=== PATIENT | male | born 1995 | race American Indian/Alaskan Native ===

== ENCOUNTER 2016-10-11 14:45 | Emergency (ER) | payer OTHER, BC ==
[2016-10-11] MEDS ORDERED: MOTRIN PO ONE (16:56)
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
--- NOTE | 2016-10-11 17:32 | XRay Report ---
FINAL REPORT EXAM: XR SPINE LUMBOSACRAL 2-3V HISTORY: back pain TECHNIQUE: AP, lateral and lumbosacral spot views of the lumbar spine. PRIORS: None. FINDINGS: There are five lumbar type vertebral bodies. Levoscoliosis of the lumbar spine is seen. No spondylolisthesis. No compression fracture. The disc spaces are maintained. The paravertebral soft tissues are normal. IMPRESSION: Levoscoliosis of the lumbar spine.
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
[2016-10-11 19:30] VITALS: BP 140/85
== END 2016-10-11 18:45 | disposition home or self-care (01) ==
LOC: ED 14:45
DX: S16.1XXA Strain of muscle, fascia and tendon at neck level, initial encounter (principal); S39.012A Strain of muscle, fascia and tendon of lower back, initial encounter; S00.93XA Contusion of unspecified part of head, initial encounter; R03.0 Elevated blood-pressure reading, without diagnosis of hypertension; V49.59XA Passenger injured in collision with other motor vehicles in traffic accident, initial encounter; Y93.9 Activity, unspecified; Y92.9 Unspecified place or not applicable; Y99.9 Unspecified external cause status
CPT/HCPCS: 70450; 72040; 72100; 99284

== ENCOUNTER 2019-08-18 07:11 | Day surgery (SDC) | payer BC, MEDICAID ==
[~2019-08-18 07:11] MED LIST: ceFAZolin/Water 2 GM/20 ML 2 GM/20 ML SYRINGE IV NR
[2019-08-18] MEDS ORDERED: SODIUM CHLORIDE 0.9% 1000 ML 1,000 ML IV SCH (08:30)
[2019-08-18] MEDS ORDERED: fentaNYL 100 MCG/2 ML INJ IV PRN (09:21)
[2019-08-18] MEDS ORDERED: ONDANSETRON 4 MG/2 ML INJ IV PRN (09:21)
[2019-08-18 09:22] LABS: Hematocrit 26.4 % (35.5-45.6); Hemoglobin 9.2 gm/dl (11.8-15.2); Mean Corpuscular HGB Conc 35 % (32-34); Mean Corpuscular Volume 99 fl (84-94); Platelet Count 226 K/mm3 (140-440); Red Blood Count 2.67 M/mm3 (3.65-5.03); Red Cell Distribution Width 16.6 % (13.2-15.2)
--- NOTE | 2019-08-18 09:22 | Anesthesia Day of Surgery ---
Anesthesia Day of Surgery - Day of Surgery Patient Examined: Yes Patient H&P Reviewed: Yes Patient is NPO: Yes
--- NOTE | 2019-08-18 09:23 | Anesthesia Consultation ---
Anesthesia Consult and Med Hx Date of service: 08/18/19 - Airway Anesthetic Teeth Evaluation: Good ROM Head & Neck: Adequate Mental/Hyoid Distance: Adequate Mallampati Class: Class III Intubation Access Assessment: Probably Good - Pre-Operative Health Status ASA Pre-Surgery Classification: ASA3 Proposed Anesthetic Plan: General - Pulmonary Hx Respiratory Symptoms: No (Pt states he can climb two flights of stairs) Hx Sleep Apnea: No (Pt denies) - Cardiovascular System Hx Hypertension: Yes - Central Nervous System Hx Psychiatric Problems: No - Endocrine Hx Renal Disease: Yes (From excessive Goody powders) Hx End Stage Renal Disease: Yes (Last HD yesterday) - Hematic Hx Anemia: No - Other Systems Hx Cancer: No Hx Obesity: Yes (Morbid)
[2019-08-18 09:25] LABS: Calcium 9.7 mg/dL (8.4-10.2)
[2019-08-18] MEDS ORDERED: MIDAZOLAM 2 MG/2 ML INJ IV NR (10:00)
[2019-08-18] MEDS ORDERED: HEPARIN 10,000 UNITS/10 ML VIAL ONE (10:12)
[2019-08-18] MEDS ORDERED: SODIUM CHLORIDE 0.9% 250ML 250 ML ONE (10:12)
[2019-08-18] MEDS ORDERED: GELATIN SPONGE SIZE 100 TP ONE ×2 (10:12→12:14)
[2019-08-18] MEDS ORDERED: PROTAMINE SULFATE 50 MG/5 ML INJ ONE (10:12)
[2019-08-18] MEDS ORDERED: THROMBIN (RECOMBINANT) 5,000 UNIT VIAL TP ONE ×2 (10:13→12:14)
[2019-08-18] MEDS ORDERED: fentaNYL 100 MCG/2 ML INJ ONE ×2 (11:04→11:53)
[2019-08-18] MEDS ORDERED: propofoL 200 MG/20 ML VIAL IV ONE (11:05)
[2019-08-18] MEDS ORDERED: LIDOCAINE MPF (2%) 20 MG/1 ML VIAL 5 ML ONE (11:06)
[2019-08-18] MEDS ORDERED: PHENYLEPHRINE/NS 1,000 MCG/10 ML SYRINGE (OR USE) IV ONE (12:08)
[2019-08-18] MEDS ORDERED: PHENYLEPHRINE 10 MG/1 ML INJ SDV ONE (12:09)
[2019-08-18] MEDS ORDERED: SODIUM CHLORIDE 0.9% 100 ML ONE (12:09)
[2019-08-18] MEDS ORDERED: HEPARIN 10,000 UNITS/10 ML VIAL IR ONE (12:12)
[2019-08-18] MEDS ORDERED: SODIUM CHLORIDE 0.9% 250 ML IVPB IR ONE (12:13)
[2019-08-18] MEDS ORDERED: oxyCODONE /ACETAMINOPHEN 5-325MG TAB PO PRN (13:13)
--- NOTE | 2019-08-18 13:13 | Post Operative Note ---
Pre-op diagnosis: ESRD Post-op diagnosis: same Procedure: Left Forearm Cephalic Vein Exposure Anesthesia: GETA Surgeon: RONEY GARCIA Estimated blood loss: minimal Pathology: none Condition: stable Disposition: PACU
--- NOTE | 2019-08-18 13:16 | Short Stay Summary ---
Short Stay Documentation Date of service: 08/18/19 - History H&P: obtained from office Past Medical History: ESRD, hypertension - Allergies and Medications Current Medications: Allergies No Known Allergies Allergy (Unverified 08/16/19 15:05) Home Medications Medication Instructions Recorded Confirmed Last Taken Type Calcium Acetate [Phoslo] 2 cap PO TID 08/18/19 08/18/19 08/17/19 18:00 History Cyclophosphamide 3 cap PO BID 08/18/19 08/18/19 08/18/19 06:00 History Labetalol HCl [Labetalol 300mg TAB] 600 mg PO Q12HR 08/18/19 08/18/19 08/17/19 13:30 History amLODIPine [Norvasc] 10 mg PO DAILY 08/18/19 08/18/19 08/18/19 06:00 History hydrALAZINE [Apresoline TAB] 100 mg PO TID 08/18/19 08/18/19 08/18/19 06:00 History Active Medications Fentanyl (Sublimaze) 50 mcg IV Q5MIN PRN PRN Reason: Pain , Severe (7-10) Stop: 08/18/19 23:00 Cefazolin Sodium (Ancef/Sterile Water 2 Gm/20 Ml) 2 gm in 20 mls @ 80 mls/hr IV PREOP NR; Protocol Stop: 08/18/19 23:59 Sodium Chloride (Nacl 0.9% 1000 Ml) 1,000 mls @ 42 mls/hr IV DIRECT MICHAEL Last Admin: 08/18/19 08:55 Dose: 42 mls/hr Documented by: Midazolam HCl (Versed) 2 mg IV PREOP NR Stop: 08/18/19 23:59 Last Admin: 08/18/19 09:51 Dose: 2 mg Documented by: Ondansetron HCl (Zofran) 4 mg IV ONCE PRN PRN Reason: Nausea And Vomiting Stop: 08/18/19 16:00 Oxycodone/Acetaminophen (Percocet 5/325) 2 tab PO Q4H PRN PRN Reason: Pain, Moderate (4-6) - Physical exam General appearance: no acute distress Lungs: Normal air movement Heart: Regular rate Extremities: no ischemia - Hospital course Hospital course: the patient was taken to the operating room for attempted left arm fistula creation but was unsuccessful. please refer to the operative report concerning details of the procedure. the patient tolerated the procedure well and was discharged home in stable condition. - Disposition Condition at discharge: Stable Disposition: [id number] TO HOME OR SELFCARE - Discharge Diagnoses (1) ESRD (end stage renal disease) on dialysis Status: Acute Short Stay Discharge Plan Follow up with: PRIMARY CARE, [Primary Care Provider] - 7 Days
--- NOTE | 2019-08-18 14:26 | Post Anesthesia Evaluation ---
- Post Anesthesia Evaluation Patient Participated: Yes Airway Patent: Yes Stable Respiratory Function: Yes Nausea/Vomiting: No Temp > 96.8F: Yes Pain Manageable: Yes Adequeate Hydration: Yes Anesthesia Complications: No Block Receding Appropriately: Not Applicable Patient on Ventilator: No
--- NOTE | 2019-08-18 14:48 | Operative Report ---
STAFF SURGEON: Dr. Lon Sandhu. PREOPERATIVE DIAGNOSIS: End-stage renal disease. POSTOPERATIVE DIAGNOSIS: End-stage renal disease. PROCEDURE PERFORMED: Left forearm cephalic vein exposure. COMPLICATIONS: None. ESTIMATED BLOOD LOSS: Less than 10 mL. ANESTHESIA: General. INDICATIONS FOR PROCEDURE: This is a 24-year-old gentleman who recently started on dialysis and currently dialyzing through a right IJ PermCath who had vein mapping performed at an outside facility and was in need of AV access in the upper extremity. It is felt that based on outside imaging that the patient had a suitable cephalic vein for AV fistula creation. Therefore, the patient was scheduled for AV fistula creation of the left arm. The patient was explained of the risks, benefits and alternatives of procedure, expressed understanding and wished to proceed. DESCRIPTION OF PROCEDURE: After appropriate consent was obtained, the patient was brought back to the operating room and placed on the operating table in supine position with left arm extended. The patient was given appropriate medication and general anesthesia, had LMA placed without difficulty. The left arm was prepped and draped in the usual sterile fashion with ChloraPrep. Appropriate preoperative antibiotics were administered and appropriate time-out performed indicating correct patient, procedure, and site of procedure. I then began the operation by making a longitudinal incision near the left wrist approximately 1 fingerbreadth lateral to the radial artery. This was carried through subcutaneous tissue with a combination of blunt dissection and electrocautery. Upon entering the subcutaneous, the cephalic vein was identified, but was found to be a diminutive in size and not suitable for a fistula creation. The ultrasound probe was brought on the field to evaluate for a suitable vein. There was a branch just lateral to the vein that was felt could be utilized for fistula creation and so an incision was made at this level just lateral to previous incision near the wrist, but again upon exposure of this vein, it was found to be not suitable for a fistula creation, so I proceeded to close both these wounds with a deep subcutaneous layer with interrupted 3-0 PDS and the skin was approximated with 4-0 Monocryl with Dermabond dressing and then proceeded to turn our attention with a potential to create a brachiocephalic AV fistula and so a transverse incision was made just below the antecubital fossa. This carried down to the subcutaneous tissue with a combination of blunt dissection and electrocautery and again an exposure of the cephalic vein at this level it was found to be considerably diminutive in size. The dissection was continued to find all the suitable veins all the way down to the muscle and again no vein was identified that could be suitable for fistula creation. With this, we then proceeded to close the wound with approximation of the subcutaneous tissue with a combination of interrupted 3-0 PDS. The skin was approximated with 4-0 Monocryl and Dermabond dressing. It was felt at this time that the patient will need to be brought back for AV graft insertion after appropriate discussion of the procedure was had with the patient. The patient then emerged from the general anesthesia, had LMA removed, and was sent to recovery in stable condition. All the sponges, instrument and needle counts were correct at completion of the operation. JOB# [id number] PEARL/LOWELL PATINO
[2019-08-18 14:59] VITALS: BP 129/66
== END 2019-08-18 07:12 | disposition home or self-care (01) ==
LOC: OR 07:11
PROVIDERS: ATTEND Surgery Vascular Surgery
DX: I12.0 Hypertensive chronic kidney disease with stage 5 chronic kidney disease or end stage renal disease (principal); N18.6 End stage renal disease; E66.01 Morbid (severe) obesity due to excess calories; Z99.2 Dependence on renal dialysis; Z98.890 Other specified postprocedural states; Z68.43 Body mass index [BMI] 50.0-59.9, adult
CPT/HCPCS: 36415; 37799; 80048; 85027; A4649; J0690; J1644; J2250; J2370; J2405; J2704; J3010; J7030; J7050; J2720